=== PATIENT | female | born 1940 | race Caucasian/White ===

== ENCOUNTER 2025-07-30 18:53 | Inpatient (IN) | payer OTHER, SELFPAY ==
[2025-07-30] VITALS (8 sets, daily range): BP systolic 114–156; BP diastolic 56–84; BMI 20.9
[2025-07-30 16:53] LABS: Hematocrit 30.3 % (37.0-47.0); Hemoglobin 9.5 g/dL (12.0-16.0); Mean Corp Hgb Conc. 31.4 g/dL (33.0-37.0); Mean Corpuscular Volume 83.9 fL (81.0-99.0); Nucleated Red Blood Cells % 0 %; Platelet Count 301 10^3/uL (130-400); Red Cell Dist. Width 16.5 % (11.5-14.5)
[2025-07-30 17:03] LABS: ALT (SGPT) 14 U/L (0-35); AST (SGOT) 22 U/L (14-36); Albumin 4.1 g/dl (3.5-5.0); Alkaline Phosphatase 77 U/L (38-126); Blood Urea Nitrogen 43 mg/dl (7-17); Calcium 10.4 mg/dl (8.4-10.2); Carbon Dioxide 31 mmol/L (22-30); Chloride 94 mmol/L (98-107); Glucose 80 mg/dl (70-99); Potassium 5.6 mmol/L (3.5-5.1); Sodium 133 mmol/L (135-145); Total Protein 8.1 g/dl (6.3-8.2); eGFR 7.95
[2025-07-30 17:09] LABS: Troponin I < 0.012 ng/ml
--- NOTE | 2025-07-30 17:27 | ED.GENMED ---
History of Present Illness
General
Chief Complaint: Breathing Problem
Source: patient
Exam Limitations: none
Time Seen by Provider: 07/30/25 17:19
Nursing documentation reviewed up to this point in time: agreed with
History of Present Illness
History of Present Illness:
Note:
CHIEF COMPLAINT(S)
Cough and difficulty breathing.
HISTORY OF PRESENT ILLNESS
The patient is an 84-year-old female with a recent evaluation revealing bilateral pneumonia. The patient has a history of dialysis, with a session scheduled for tomorrow and one completed yesterday without issues. She reports coughing and difficulty
breathing but denies experiencing chills or fever. Approximately one month ago, she suffered a fall affecting the right side of her body, for which she was evaluated. The patients pneumonia was identified via X-ray, and she previously experienced
Clostridioides difficile (C. diff) infection following antibiotic treatment with oral vancomycin. The need for intravenous antibiotics despite previous complications with antibiotics due to C. diff was discussed. A hospital stay for initiation of IV
antibiotics and monitoring for potential C. diff recurrence was proposed. This condition is not believed to be related to fluid overload, as the patient is reportedly dry following dialysis.
PAST MEDICAL AND SURGICAL HISTORY
The patient experienced a fall in February and was treated at [facility].
CHRONIC MEDICAL CONDITIONS SIGNIFICANTLY AFFECTING CARE
End-stage renal disease on regular dialysis.
SOCIAL DETERMINANTS AFFECTING HEALTH
The patient has been dependent on family members for care since February following her fall.
EXTERNAL RECORDS REVIEWED
The patient was previously treated at [facility] in February for a fall. Previous treatment included oral vancomycin following C. diff infection.
REVIEW OF SYSTEMS
- Respiratory: Reports cough and difficulty breathing; denies fever and chills.
PHYSICAL EXAM
General: Alert, no acute distress.
Skin: Warm, dry.
Head: Normocephalic, atraumatic.
Neck: Supple, trachea midline.
Eye, Ears, Nose, Mouth, and Throat: Oral mucosa moist.
Cardiovascular: Normal peripheral perfusion, No edema.
Respiratory: Respirations are non-labored. Presence of pneumonia with audible impaired lung sounds in bilateral lungs.
Gastrointestinal: Abdomen nondistended.
Back: Normal range of motion, Normal alignment.
Musculoskeletal: Normal ROM, normal strength.
Neurological: Alert and oriented to person, place, time, and situation, No focal neurological deficit observed.
Psychiatric: Cooperative, appropriate mood & affect.
PROBLEM LIST
Acute Problems:
- Bilateral pneumonia
- Cough
- Difficulty breathing
Chronic Problems:
- End-stage renal disease on dialysis
- History of Clostridioides difficile infection
PLAN
The patient will be admitted to the hospital for intravenous antibiotic treatment for pneumonia. Close monitoring for the recurrence of Clostridioides difficile infection will be necessary. Coordination with the internal medicine doctor and the
patient�s primary care physician, Dr. Huddleston, is planned. Arrangements for dialysis to be conducted in the hospital are needed due to the admission. A transitional plan to oral antibiotics will be established pending improvement.
DIFFERENTIAL DIAGNOSIS
The Differential Diagnosis includes, in no particular order and is not limited to:
1. Bilateral pneumonia
2. Congestive heart failure exacerbation
3. Chronic obstructive pulmonary disease exacerbation
4. Pulmonary embolism
5. Acute respiratory distress syndrome
6. Interstitial lung disease
7. Pleural effusion
8. Tuberculosis
9. Bronchitis
10. Aspiration pneumonia
CARE-UPDATE
07/30/25 - 17:49
Discussed patient condition and treatment plan with Dr. Smith from infectious disease. Recommended treatment includes oral vancomycin, intravenous ceftriaxone, and oral doxycycline. Plan to admit to hospitalists for continued care and monitor
closely. Patient scheduled for dialysis in the morning.
EKG
My independent EKG interpretation is:
- Rhythm: Not specifically mentioned, but presence of premature atrial complexes suggests possibly sinus rhythm with ectopy.
- Heart Rate: 77 bpm.
- Premature Atrial Complexes: Present.
- Left Anterior Fascicular Block: Present.
- No previous EKG available for comparison.
Disposition:
SUMMARY OF ENCOUNTER
The patient, an 84-year-old female, was seen in the emergency department with a diagnosis of bilateral pneumonia. She also has a chronic medical condition of end-stage renal disease requiring dialysis. Due to her pneumonia, the plan is to admit her
to the hospitalists for initiation of intravenous antibiotic treatment and to prevent recurrence of a C. diff infection with oral vancomycin. Dialysis arrangements will be made during her hospital stay.
DISPOSITION
Admit.
ASSESSMENT
Bilateral pneumonia in a patient with end-stage renal disease on dialysis.
MANAGEMENT OF THE PATIENTS CARE WAS DISCUSSED WITH
Discussed management plan with infectious disease physician regarding the administration of oral vancomycin to prevent C. diff.
PLAN
The patient will be admitted for hospital-based care including intravenous antibiotics for bilateral pneumonia. Oral vancomycin will be administered as prophylaxis against C. diff infection. Necessary arrangements for routine dialysis during
hospitalization are also planned.
INDEPENDENT REVIEW OF LABS AND INTERPRETATION OF TESTS
-My independent interpretation for the chest x-ray and identification of pneumonia was based on reported imaging, confirming bilateral pneumonia presence.
MEDICATION RECONCILIATION
- Oral vancomycin will be administered as a preventive measure against Clostridioides difficile infection during the hospital stay.
MEDICAL DECISION MAKING
- Number and Complexity of Problems Addressed: Chronic conditions affecting care include bilateral pneumonia and end-stage renal disease on dialysis.
Differential Diagnosis considered:
1. Bilateral pneumonia
2. Congestive heart failure exacerbation
3. Chronic obstructive pulmonary disease exacerbation
4. Pulmonary embolism
5. Acute respiratory distress syndrome
6. Interstitial lung disease
7. Pleural effusion
8. Tuberculosis
9. Bronchitis
10. Aspiration pneumonia
- Data:
Category 1:
- External records reviewed: Previous treatments at [facility] for falls and C. diff infection.
Category 2:
- My independent interpretation of the chest x-ray shows bilateral pneumonia.
Category 3:
- Discussion of management with infectious disease specialist, Dr. Smith, concerning antibiotics regimen.
- Risk:
- Prescription drug management includes administering oral vancomycin.
- Hospital admission for intravenous antibiotics and monitoring for C. diff recurrence.
DIAGNOSIS
- Bilateral Pneumonia (ICD-10: J18.9)
- End-Stage Renal Disease on dialysis (ICD-10: N18.6)
Phy Exam
Physical Exam
Physical Exam:
.
Scores
Heart Failure Risk
Heart Failure Risk Score: Not Applicable
Course
Orders/Labs/Results
Orders:
Orders
07/30/25 15:17
Electrocardiogram (*1) Urgent
Reason for Study: Shortness of Breath
EKG- Treatment ONCE
Chest [CR Chest - 2 Views ] Urgent
Comment:
Reason For Exam: sob and cough
07/30/25 16:38
Complete Blood Count/With Diff Urgent
Comprehensive Metabolic Panel Urgent
NT-proBNP Urgent
Troponin I Urgent
07/30/25 17:20
COVID-19 Antigen Urgent
Source: Nasal Swab
Influenza A+B Rapid Molecular Urgent
ZEUS Source: Nasal Swab
Specimen Description:
07/30/25 17:44
CefTRIAXone [Rocephin] 1,000 mg IV NOW STA
Doxycycline [Vibramycin] 100 mg PO NOW STA
Vancomycin HCl [Firvanq] 125 mg PO NOW STA
07/30/25 17:45
Blood Culture Q30M
ZEUS Source: Blood/Venous
Specimen Description:
07/30/25 18:15
Blood Culture Q30M
ZEUS Source: Blood/Venous
Specimen Description:
Abnormal Lab Results
07/30/25
16:38
RBC 3.61 L 10^6/uL
(4.20-5.40)
Hgb 9.5 L g/dL
(12.0-16.0)
Hct 30.3 L %
(37.0-47.0)
MCH 26.3 L pg
(27.0-31.0)
MCHC 31.4 L g/dL
(33.0-37.0)
RDW 16.5 H %
(11.5-14.5)
Absolute Neuts (auto) 6.6 H 10^3/uL
(1.4-6.5)
Absolute Lymphs (auto) 0.8 L 10^3/uL
(1.2-3.4)
Absolute Monos (auto) 1.1 H 10^3/uL
(0.1-0.6)
Neutrophils % 75.3 H %
(42.2-75.2)
Lymphocytes % 8.7 L %
(20.5-51.1)
Monocytes % 12.8 H %
(1.7-9.3)
Sodium 133 L mmol/L
(135-145)
Potassium 5.6 H mmol/L
(3.5-5.1)
Chloride 94 L mmol/L
(98-107)
Carbon Dioxide 31 H mmol/L
(22-30)
BUN 43 H mg/dl
(7-17)
Creatinine 5.0 H* mg/dL
(0.6-1.0)
Calcium 10.4 H mg/dl
(8.4-10.2)
07/30/25 16:38
07/30/25 16:38
Vital Signs
Initial and Last Documented VS:
Initial Vital Signs
Temp Pulse Resp BP Pulse Ox
99.2 F 87 28 114/56 97
07/30/25 15:07 07/30/25 15:07 07/30/25 15:07 07/30/25 15:07 07/30/25 15:07
Last Documented Vital Signs
Temp Pulse Resp BP Pulse Ox
99.2 F 68 24 144/65 97
07/30/25 15:07 07/30/25 17:00 07/30/25 17:00 07/30/25 17:00 07/30/25 17:28
*Pulse Oximetry
SaO2: 97
Oxygen Mode of Delivery: Room air
Patient hypoxic: no
*Critical Care Note
Total Time (30-74mins, 75-104mins- exclusive of procedures): Not Applicable
ED Attending Note
-
Portions of this chart may have been created with voice recognition software.� Occasional wrong word or��sound alike� substitutions may have occurred due to the inherent limitations of voice recognition software.
Discharge Plan
Departure
Patient Disposition: Admit
Date of Disposition: 07/30/25
Time of Disposition: 17:52
Admit to: Telemetry
Presentation/result/management discussed w/ accepting MD/DO: Hospitalist
Patient with high blood pressure during this ER visit?: Yes
Condition: Fair
Discharge Problem:
Bilateral pneumonia, End-stage renal disease (ESRD)
Referrals:
Mu Ortiz MD [Family Provider, Internal Medicine]
Interventions
Interventions:
*Risk Screen - Suicide Last Done: 07/30/25 15:07
Discharge Date and Time
Print Language: TAMAZIGHT
--- NOTE | 2025-07-30 17:55 | HPS.HSE ---
Addendum entered and electronically signed by Jose Alfredo Adams MD 07/30/25 20:43:
This is an addendum to H&P written by Marie Long on 07/30/2025. �Patient seen and examined independently with PUMP TECHNICIAN.
84-year-old female past medical history of ESRD on hemodialysis, hypertension, PFO, prior C. difficile presenting with cough with clear sputum for the past 2 weeks with shortness of breath at times. �2 weeks ago had a fall and was seen at [facility] with right facial bruise with negative CT head.
No fevers or chills or chest pain.
Vital signs unremarkable.
Labs show hemoglobin 9.5. �Potassium 5.6. �Cardiac BNP of 19,000. �EKG shows sinus rhythm with premature atrial complexes. �Left anterior fascicular block. �Chest x-ray shows bilateral patchy parenchymal opacities likely pneumonia. �COVID and flu
pending.
Patient with pneumonia. �Check sputum. �Blood cultures pending. �Ceftriaxone/doxycycline.
Patient received dialysis yesterday. �Nephrology consulted for routine dialysis tomorrow. �Hyperkalemia secondary to losartan. �Hold losartan. �Give single dose of Lokelma for hyperkalemia. �ID recommended p.o. vancomycin given history of C.
difficile.
Addendum entered and electronically signed by NUBIA Ellington 07/30/25 19:02:
hyperkalemia: lokelma once, hold losartan
Original Note:
Family Physician
-
Family Physician: Mu Robledo
Chief Complaint
-
cough
History of Present Illness
84-year-old female with past medical history of hypertension, PFO, end-stage renal disease, C diff presented to us with cough with some clear sputum for past two weeks. patient stated sob at times with exertion. denied fever, chills,chest pain.
denied HOWELL< dizzy or syncope. denied abdominal pain,n,v,d. patient is anuric.
she had an x ray last week but no results yet. patient had a fall two week ago. she was evaluated at [facility]. CT head was obtained which was negative. her facial bruising getting better as per son.
Chest x-ray with pneumonia. Patient received a dose of oral Vanco, ceftriaxone and Doxy in ER. Admitting for further management
Medical History
Past Medical History
Past Medical History: Reports Other
Additional Past Medical History:
Glaucoma, bilateral cirrhosis, end-stage renal disease, vertigo, GERD, hypothyroidism, SVT, glomerulonephritis, hypertension, polyarteritis nodosa, Arana's esophagus, cardiomyopathy, PFO
Past Surgical History: Reports Other
Additional Past Surgical History:
Appendectomy, cataract surgery, tonsillectomy, AV fistula placement
Social History
Tobacco: Former Smoker
Alcohol: None
Drug: None
Living: With Family
Family History
Family History: Not pertinent
Allergies / Home Medications
Allergies reflects when Allergies were last updated in [employer].
Home Medications with original date entered in [employer]
Allergy/Medication List:
Allergies
Allergy/AdvReac Type Severity Reaction Status Date / Time
No Known Allergies Allergy Unverified 07/30/25 15:07
Home Medications
amlodipine 5 mg tablet 5 mg PO DAILY 07/30/25
calcium acetate(phosphat bind) 667 mg capsule 667 mg PO TID 07/30/25
carvedilol 25 mg tablet 25 mg PO BID 07/30/25
folic acid 1 mg tablet 1 mg PO DAILY 07/30/25
latanoprost 0.005 % eye drops 1 drp BOTH EYES HS 07/30/25
levothyroxine 100 mcg tablet (Synthroid) 25 mcg PO DAILY 07/30/25
levothyroxine 200 mcg tablet (Synthroid) 200 mcg PO DAILY 07/30/25
lidocaine 5 % topical patch 1 patch topical DAILY 07/30/25
losartan 100 mg tablet 100 mg PO DAILY 07/30/25
melatonin 5 mg tablet 5 mg PO HS PRN sleep 07/30/25
pantoprazole 40 mg tablet,delayed release 40 mg PO DAILY 07/30/25
ursodiol 300 mg capsule 250 mg PO TID 07/30/25
vitamin B complex and vitamin C no.20-folic acid 1 mg capsule (Triphrocaps) 1 cap PO DAILY 07/30/25
Review of Systems
-
Constitutional: Reports No Symptoms
EENT: Reports No Symptoms
Respiratory: Reports Cough and Trouble Breathing
Cardiac: Reports No Symptoms
Abdomen/GI: Reports No Symptoms
: Reports No Symptoms
Musculoskeletal: Reports No Symptoms
Skin: Reports No Symptoms
Neurological: Reports No Symptoms
Endocrine: Reports No Symptoms
Hematologic/Lymphatic: Reports No Symptoms
Psych: Reports No Symptoms
Physical Exam
Vital Signs
Vital Signs
Temp Pulse Resp BP Pulse Ox
99.2 F 68 24 144/65 97
07/30/25 15:07 07/30/25 17:00 07/30/25 17:00 07/30/25 17:00 07/30/25 17:28
Physical Exam
General: Well Developed, Well Nourished and No Apparent Distress
HEENT: NormoCephalic, Moist mucous membranes and Atraumatic
Respiratory: Rales
Cardiac: S1/S2 and Regular Rhythm; No Murmur or Rub
GI: Soft, Non Tender, Non Distended and Normal Bowel Sounds; No Organomegaly
Rectal: Deferred by Provider
Musculoskeletal: No Clubbing, No Cyanosis and No Edema
Skin: No Rash
Neuro: AO x 3 and Nonfocal/grossly intact
Psych: Calm
Laboratory Results
-
07/30/25 16:38
07/30/25 16:38
Laboratory Results
Total Bilirubin 0.6 mg/dl (0.2-1.3) 07/30/25 16:38
AST 22 U/L (14-36) 07/30/25 16:38
ALT 14 U/L (0-35) 07/30/25 16:38
Alkaline Phosphatase 77 U/L (38-126) 07/30/25 16:38
Troponin I < 0.012 ng/ml 07/30/25 16:38
Data Reviewed
-
Diagnostic Radiology: Report Reviewed by me
Lab Data: Labs Reviewed by me
Impression/Plan
-
# Bilateral pneumonia
- Ceftriaxone and Doxy continued
- Tylenol and fever
- Will obtain urine Legionella, strep pneumonia
- Chest x-ray with impression of Bilateral patchy parenchymal opacities, new since prior examination, and very likely representing pneumonia.No significant associated pleural effusion.
- Blood culture sent from ER
- COVID and flu pending
# History of C diff
-Prophylactically initiated on oral vancomycin as per ID
# Anemia likely chronic
- Hemoglobin stable at 9.5, no active bleeding
- Continue to monitor
# End-stage renal disease
- On dialysis Tuesday
- Nephrology consulted
- Calcium acetate, ursodiol, triprocaps continued
# Essential hypertension
- Norvasc, Coreg, losartan continue with hold parameters
# Hypothyroidism
- Levothyroxine continue
#DVT prophylaxis
-heparin sq
#CODE status
-full code
[2025-07-30] MEDS: ROCEPHIN 1000 MG IV (18:31)
[2025-07-30] MEDS: VIBRAMYCIN 100 MG PO (18:31)
[2025-07-30 19:12] LABS: COVID-19 Antigen Negative (Negative)
[2025-07-30] MEDS: LOKELMA 5 GRAM PO (21:17)
[2025-07-30] MEDS: ACTIGALL 300 MG PO (23:17)
[2025-07-30] MEDS: COREG 25 MG PO (23:18)
[2025-07-30] MEDS: HEPARIN 5000 UNITS SC (23:18)
[2025-07-30] MEDS: MUCINEX 600 MG PO (23:18)
[2025-07-30] MEDS: XALATAN OPHTHALMIC SOLUTION 1 DROP BOTH EYES (23:18)
[2025-07-30] MEDS: MELATONIN 5 MG PO (23:20)
[2025-07-31 03:03] VITALS: BP 135/71
[2025-07-31] MEDS: FIRVANQ 125 MG PO ×4 (05:02→23:49)
[2025-07-31 06:00] VITALS: BMI 20.9
[2025-07-31 08:06] LABS: Hematocrit 29.3 % (37.0-47.0); Hemoglobin 9.3 g/dL (12.0-16.0); Mean Corp Hgb Conc. 31.7 g/dL (33.0-37.0); Mean Corpuscular Volume 83.5 fL (81.0-99.0); Platelet Count 274 10^3/uL (130-400); Red Cell Dist. Width 16.3 % (11.5-14.5)
[2025-07-31 08:25] VITALS: BP 144/70
[2025-07-31] MEDS: NEPHROCAP 1 CAPSULE PO (08:37)
[2025-07-31] MEDS: TYLENOL 500 MG PO ×3 (08:38→22:04)
[2025-07-31] MEDS: PROTONIX 40 MG PO (08:38)
[2025-07-31] MEDS: VIBRAMYCIN 100 MG PO ×2 (08:38→20:34)
[2025-07-31] MEDS: PHOSLO 667 MG PO ×3 (08:38→17:13)
[2025-07-31] MEDS: COREG 25 MG PO ×2 (08:38→20:34)
[2025-07-31] MEDS: FOLVITE 1 MG PO (08:39)
[2025-07-31] MEDS: MUCINEX 600 MG PO ×2 (08:39→20:34)
[2025-07-31] MEDS: NORVASC 5 MG PO ×2 (08:39→20:34)
[2025-07-31] MEDS: HEPARIN 5000 UNITS SC ×2 (08:39→22:05)
[2025-07-31] MEDS: LIDOCAINE 4% PATCH 1 PATCH TOPICAL (08:40)
[2025-07-31] MEDS: ACTIGALL 300 MG PO ×3 (08:40→22:03)
[2025-07-31 08:48] LABS: Blood Urea Nitrogen 51 mg/dl (7-17); Calcium 9.4 mg/dl (8.4-10.2); Carbon Dioxide 26 mmol/L (22-30); Chloride 94 mmol/L (98-107); Estimated Creatinine Clearance 5 ml/min; Glucose 78 mg/dl (70-99); Potassium 6.1 mmol/L (3.5-5.1); Sodium 131 mmol/L (135-145); eGFR 6.94
[2025-07-31] MEDS: LOKELMA 10 GRAM PO (09:52)
[2025-07-31] MEDS: DEXTROSE 50% SYRINGE 25 GRAMS IV (09:55)
[2025-07-31] MEDS: NOVOLIN R 0.05 UNITS IV (09:56)
[2025-07-31 10:00] LABS: Glucose - Point of Care 75 mg/dl (70-99)
--- NOTE | 2025-07-31 11:06 | W.PN.HOSP.TC ---
Today's Communication/Plan
-
Continue with antibiotic
Sputum sample pending
Temporary measure for potassium
Hemodialysis today
Assessment / Plan
Assessment / Plan
General: Well Developed, Well Nourished and No Apparent Distress, facial bruising noted
HEENT: NormoCephalic, Moist mucous membranes and Atraumatic. HD catheter noted
Respiratory: Rhonchi, not tachypneic, able to speak in complete sentences
Cardiac: S1/S2 and Regular Rhythm; No Murmur or Rub
GI: Soft, Non Tender, Non Distended and Normal Bowel Sounds; No Organomegaly
Rectal: Deferred by Provider
Musculoskeletal: No Clubbing, No Cyanosis and No Edema
Skin: No Rash
Neuro: AO x 3 and Nonfocal/grossly intact
Psych: Calm
# Bilateral pneumonia
- Ceftriaxone and Doxy continued
- Monitor temperature curve.
- Chest x-ray with impression of Bilateral patchy parenchymal opacities, new since prior examination, and very likely representing pneumonia.No significant associated pleural effusion.
- Blood culture sent from ER and in lab pending.
- COVID and flu found to be negative. Sputum sample pending.
# History of C diff
-Prophylactically initiated on oral vancomycin
# Anemia likely chronic
- Hemoglobin stable at 9.5, no active bleeding
- Continue to monitor
# End-stage renal disease
#Hyperkalemia secondary to ESRD and also on losartan
- On dialysis Tuesday
- Nephrology consulted
- Calcium acetate, ursodiol, triprocaps continued
- Dose of Lokelma and insulin/glucose. Plan for hemodialysis later today.
# Essential hypertension
- Norvasc, Coreg, continue with hold parameters
- With severe hyperkalemia may need to consider stopping losartan?
# Hypothyroidism
- Levothyroxine continue
#DVT prophylaxis
-heparin sq
#CODE status
-full code
PT recs -SNF
Anticipated Discharge: > 48 hours
Subjective/Interval History
-
Date of Service: July 31, 2025
Shortness of breath
States no severe productive cough
On room air
States about eat breakfast
Objective Data
-
Labs:
Laboratory Results
07/31/25
07:16
WBC 8.5
Hgb 9.3 L
Hct 29.3 L
Plt Count 274
Sodium 131 L
Potassium 6.1 H*
Chloride 94 L
Carbon Dioxide 26
BUN 51 H
Creatinine 5.6 H*
Glucose 78
Calcium 9.4
Vital Signs:
Vital Signs
Temp Pulse Resp BP Pulse Ox
98.0 F 63 16 144/70 97
07/31/25 08:25 07/31/25 08:25 07/31/25 08:25 07/31/25 08:25 07/31/25 08:25
I&O
07/30/25 07/31/25 08/01/25
06:59 06:59 06:59
Intake Total 240 / 240
Balance 240 / 240
Data Reviewed
-
Total Time Spent with Patient (in minutes): 55
[2025-07-31 11:54] LABS: Glucose - Point of Care 110 mg/dl (70-99)
[2025-07-31 11:56] VITALS: BP 137/65
--- NOTE | 2025-07-31 11:59 | CM ---
CM reviewed chart, patient seen bedside with son, Harrison (Physician), initial assessment completed.
The patient is an 84-year-old female with a recent evaluation revealing bilateral pneumonia.
Patient currently resides with her son, Kojo, in [place]. Patient was recently admitted to [facility], d/c to [facility], then d/c to son's home (one level, re-did garage for patient to stay in, ramp to enter). Prior to staying with
son, patient resides in a ranch style home, two steps to enter in [place].
Patient is currently with [facility], will send referral in [facility].
Patient DME includes rollator, transport chair.
Patient current with [facility] location (M,W,F 11:00 a.m. chair time).
PCP Mu Ortiz, Pharmacy [facility].
Patient denies insecurities at home.
Patient/son confirm plan will be to return to son's home in [place] once stable.
Plan; home with son with [facility] pending patient progress
[2025-07-31] MEDS: HEPARIN 500 UNITS IV ×2 (13:05→14:05)
--- NOTE | 2025-07-31 14:24 | W.CON.NEPH ---
Consultation
-
Date/Time Consultation Requested: 07/30/252127
Date/Time Consultation Performed: 07/31/25 1430
Requesting Provider: Shae Tate
Performing Provider: brennan Liao
Reason for Consultation: ESRD
Medical History
-
Chief Complaint: cough
History of Present Illness:
84-year-old female with past medical history of hypertension on amlodipine, coreg and losartan, PFO, end-stage renal disease on HD 8.5 yrs MWF [facility] through tunneled catheter, C diff presented to ER on 07/30 with cough with some clear
sputum for past two weeks. patient stated sob at times with exertion. denied fever, chills,chest pain. denied abdominal pain,n,v,d. NO sig UOP.Reportedly had coughing during eating. patient had a fall two week ago. she was evaluated at [facility]. her
facial bruising getting better as per son.
Chest x-ray shows bilat pneumonia and admited for further manaement. Nephrology was asked to see for dialysis needs.
She reports no issues with HD other than low BPs which limits her UF more so lately. Has tunneled catheter fro last 2yres and exchanged about 1 month ago.
Past Medical History
Glaucoma, bilateral cirrhosis, end-stage renal disease, vertigo, GERD, hypothyroidism, SVT, glomerulonephritis, hypertension, polyarteritis nodosa, Arana's esophagus, cardiomyopathy, PFO
Failed AVFs
Past Surgical History: Other (Appendectomy, cataract surgery, tonsillectomy, AV fistula placement)
Social History
Tobacco: Former Smoker
Alcohol: None
Drug: None
Living: With Family
Family History
Family History: Not Pertinent
Allergies / Home Medications
Allergy/AdvReac Type Severity Reaction Status Date / Time
amoxicillin (From Augmentin) Allergy PER SON Verified 07/30/25 21:59
clavulanic acid (From Allergy PER SON Verified 07/30/25 21:59
Augmentin)
erythromycin base Allergy PER SON Verified 07/30/25 21:59
�Medication �Instructions �Recorded �Confirmed �Type
Tylenol Extra Strength 500 mg PO TID back pain 07/30/25 07/30/25 History
amlodipine 5 mg tablet 5 mg PO BID Blood Pressure 07/30/25 07/30/25 History
calcium acetate(phosphat bind) 667 667 mg PO TID Supplement 07/30/25 07/30/25 History
mg capsule
carvedilol 25 mg tablet 25 mg PO BID Blood Pressure 07/30/25 07/30/25 History
folic acid 1 mg tablet 1 mg PO DAILY Supplement 07/30/25 07/30/25 History
latanoprost 0.005 % eye drops 1 drp BOTH EYES HS Eye Condition 07/30/25 07/30/25 History
levothyroxine 100 mcg tablet 50 mcg PO HS Thyroid 07/30/25 07/30/25 History
(Synthroid)
levothyroxine 200 mcg tablet 200 mcg PO DAILY Thyroid 07/30/25 07/30/25 History
(Synthroid)
losartan 100 mg tablet 100 mg PO DAILY Blood Pressure 07/30/25 07/30/25 History
melatonin 5 mg tablet 10 mg PO HS Sleep 07/30/25 07/30/25 History
pantoprazole 40 mg tablet,delayed 40 mg PO DAILY Gastrointestinal 07/30/25 07/30/25 History
release Issue
ursodiol 300 mg capsule 300 mg PO TID Urinary Issue 07/30/25 07/30/25 History
vitamin B complex and vitamin C 1 cap PO DAILY Supplement 07/30/25 07/30/25 History
no.20-folic acid 1 mg capsule
(Triphrocaps)
Review of Systems
-
All other systems: Negative unless noted
Physical Exam
Vital Signs
Vital Signs
Temp Pulse Resp BP Pulse Ox
97.5 F 70 18 137/65 99
07/31/25 11:56 07/31/25 11:56 07/31/25 11:56 07/31/25 11:56 07/31/25 11:56
Lab Results
WBC 8.5 10^3/uL (4.8-10.8) 07/31/25 07:16
RBC 3.51 10^6/uL (4.20-5.40) L 07/31/25 07:16
Hgb 9.3 g/dL (12.0-16.0) L 07/31/25 07:16
Hct 29.3 % (37.0-47.0) L 07/31/25 07:16
Plt Count 274 10^3/uL (130-400) 07/31/25 07:16
Sodium 131 mmol/L (135-145) L 07/31/25 07:16
Potassium 6.1 mmol/L (3.5-5.1) H* 07/31/25 07:16
Chloride 94 mmol/L (98-107) L 07/31/25 07:16
Carbon Dioxide 26 mmol/L (22-30) 07/31/25 07:16
BUN 51 mg/dl (7-17) H 07/31/25 07:16
Creatinine 5.6 mg/dL (0.6-1.0) H* 07/31/25 07:16
eGFR 6.94 07/31/25 07:16
Glucose 78 mg/dl (70-99) 07/31/25 07:16
Calcium 9.4 mg/dl (8.4-10.2) 07/31/25 07:16
Pmx-F-Yqhtvtfepao Pept 95875 pg/ml 07/30/25 16:38
Albumin 4.1 g/dl (3.5-5.0) 07/30/25 16:38
Physical Exam
General: Awake, Alert, Oriented, AOx3, No Distress and Nontoxic
HEENT: EOMI, Anicteric, Conjunctivae Clear and Other (facial bruising noted-healing)
Respiratory: Clear (anteriorly), Normal Excursion and Nonlabored Respirations
Cardiac: S1/S2 and Regular Rate/Rhythm
Breast: Deferred by me
Abdomen: Soft, Nontender and Nondistended
Musculoskeletal: No Cyanosis and No Edema
Skin: No Rash
Neuro: Nonfocal/Grossly Intact
Psych: Mood/afflect pleasant, Insight/judgement good and Appropriate
Vascular Access: CVC
Data Reviewed
-
Labs: Labs Reviewed by me, Discussed with Patient and Discussed with Family
Assessment/Plan
-
IMP:
Bilateral pneumonia
History of C diff
Anemia likely chronic
End-stage renal disease MWF, CVC
Hyperkalemia
Essential hypertension
Hypothyroidism
Plan:
A/w cough, noted bilat PNA
will plan HD as per schedule today
hyperkalemia-low k bath
strict renal diet and FR
resume home meds including losartan
with aneuric state ARB likely not contributing much of hyperkalemia
likely need to hold Amlodipine, coreg pre HD to allow UF
d/wpt and son
[2025-07-31] MEDS: RETACRIT 6000 UNITS IV (14:55)
[2025-07-31 15:00] VITALS: BP 115/66
--- NOTE | 2025-07-31 15:36 | W.PN.NEPH.HD ---
Assessment
-
pt seen during HD
vitals stable
UF as tolerates
may need to challenge wt for resp symp
CVC functions fine
Progress Note - Hemodialysis
-
Date of Service: July 31, 2025
Duration: 30 minutes and 3 hours
Potassium Bath: 2
Calcium Bath: 2.5
Opti-Dialyzer: 160
Ultrafiltration: Other (1.5-2kg)
Blood Flow: 350
Dialysate Flow: 600
Heparin: yesx2
EPO: 6000
[2025-07-31] MEDS: HEPARIN 3200 UNITS INTRACATH (16:31)
[2025-07-31] MEDS: STERILE WATER FOR INJECTION 10 ML IV (17:15)
[2025-07-31] MEDS: ROCEPHIN 1000 MG IV (17:15)
[2025-07-31 19:41] VITALS: BP 143/83
[2025-07-31] MEDS: REMOVE LIDOCAINE PATCH 1 PATCH REMOVE (21:00)
[2025-07-31] MEDS: XALATAN OPHTHALMIC SOLUTION 1 DROP BOTH EYES (22:05)
[2025-07-31 22:23] LABS: Blood Urea Nitrogen 19 mg/dl (7-17); Calcium 8.9 mg/dl (8.4-10.2); Carbon Dioxide 28 mmol/L (22-30); Chloride 97 mmol/L (98-107); Estimated Creatinine Clearance 10 ml/min; Glucose 153 mg/dl (70-99); Potassium 4.1 mmol/L (3.5-5.1); Sodium 133 mmol/L (135-145); eGFR 15.95
[2025-07-31] MEDS: SYNTHROID 200 MCG PO (23:08)
[2025-07-31] MEDS: SYNTHROID 50 MCG PO (23:08)
[2025-07-31 23:13] VITALS: BP 139/85
[2025-08-01 03:32] VITALS: BP 134/69
[2025-08-01] MEDS: FIRVANQ 125 MG PO ×4 (05:20→23:00)
[2025-08-01 06:00] VITALS: BMI 21.0
[2025-08-01 07:00] VITALS: BP 147/63
[2025-08-01 07:49] LABS: Hematocrit 30.2 % (37.0-47.0); Hemoglobin 9.5 g/dL (12.0-16.0); Mean Corp Hgb Conc. 31.5 g/dL (33.0-37.0); Mean Corpuscular Volume 85.3 fL (81.0-99.0); Platelet Count 274 10^3/uL (130-400); Red Cell Dist. Width 16.2 % (11.5-14.5)
[2025-08-01] MEDS: COREG 25 MG PO ×2 (08:20→20:50)
[2025-08-01] MEDS: PROTONIX 40 MG PO (08:20)
[2025-08-01] MEDS: MUCINEX 600 MG PO ×2 (08:20→20:50)
[2025-08-01] MEDS: LIDOCAINE 4% PATCH 1 PATCH TOPICAL (08:20)
[2025-08-01] MEDS: PHOSLO 667 MG PO ×3 (08:20→16:58)
[2025-08-01] MEDS: DESENEX/MITRAZOL/ZEASORB 1 APPLIC TOPICAL ×2 (08:20→22:54)
[2025-08-01] MEDS: NORVASC 5 MG PO ×2 (08:20→20:50)
[2025-08-01] MEDS: VIBRAMYCIN 100 MG PO ×2 (08:20→20:50)
[2025-08-01] MEDS: HEPARIN 5000 UNITS SC ×2 (08:20→22:54)
[2025-08-01] MEDS: NEPHROCAP 1 CAPSULE PO (08:21)
[2025-08-01] MEDS: ACTIGALL 300 MG PO ×3 (08:21→20:51)
[2025-08-01] MEDS: TYLENOL 500 MG PO ×3 (08:21→20:51)
[2025-08-01] MEDS: FOLVITE 1 MG PO (08:21)
[2025-08-01 08:36] LABS: Blood Urea Nitrogen 30 mg/dl (7-17); Calcium 8.8 mg/dl (8.4-10.2); Carbon Dioxide 29 mmol/L (22-30); Chloride 98 mmol/L (98-107); Estimated Creatinine Clearance 7 ml/min; Glucose 87 mg/dl (70-99); Potassium 5.0 mmol/L (3.5-5.1); Sodium 135 mmol/L (135-145); eGFR 9.80
--- NOTE | 2025-08-01 10:56 | W.PN.HOSP.TC ---
Addendum entered and electronically signed by Antwan Velasco MD 08/01/25 11:58:
Bilateral heels stage I pressure injury likely present on admission. Wound care. Offloading.
Original Note:
Today's Communication/Plan
-
IV abx
HD EDW
PT recs SNF
po vanc
Assessment / Plan
Assessment / Plan
General: Well Developed, Well Nourished and No Apparent Distress, facial bruising noted
HEENT: NormoCephalic, Moist mucous membranes and Atraumatic. HD catheter noted
Respiratory: Rhonchi, not tachypneic, able to speak in complete sentences
Cardiac: S1/S2 and Regular Rhythm; No Murmur or Rub
GI: Soft, Non Tender, Non Distended and Normal Bowel Sounds;
Musculoskeletal:trace edema
Skin: No Rash
Neuro: AO x 3 and Nonfocal/grossly intact
Psych: Calm
# Bilateral pneumonia
- Ceftriaxone and Doxy continued
- Monitor temperature curve.
- Chest x-ray with impression of Bilateral patchy parenchymal opacities, new since prior examination, and very likely representing pneumonia.No significant associated pleural effusion.
- Blood culture sent from ER and in lab pending.
- COVID and flu found to be negative. Sputum sample pending.
-CXR finding ?related to volume overload.
# History of C diff
-Prophylactically initiated on oral vancomycin
# Anemia likely chronic
- Hemoglobin stable at 9.5, no active bleeding
- Continue to monitor
# End-stage renal disease
#Hyperkalemia secondary to ESRD and also on losartan
- On dialysis Tuesday
- Nephrology consulted and correspondence noted-may need EDW challenge.
- Calcium acetate, ursodiol, triprocaps continued
- Dose of Lokelma and insulin/glucose. Plan for hemodialysis likely tomm.
# Essential hypertension
- Norvasc, Coreg, continue with hold parameters
- Per nephro-okay to continue with losartan.
# Hypothyroidism
- Levothyroxine continue
#DVT prophylaxis
-heparin sq
#CODE status
-full code
PT recs -SNF
Anticipated Discharge: Within 24 hours
Subjective/Interval History
-
Date of Service: August 01, 2025
Feeling weak
tolerating diet
Objective Data
-
Labs:
Laboratory Results
08/01/25
06:59
WBC 7.1
Hgb 9.5 L
Hct 30.2 L
Plt Count 274
Sodium 135
Potassium 5.0
Chloride 98
Carbon Dioxide 29
BUN 30 H
Creatinine 4.2 H*
Glucose 87
Calcium 8.8
Vital Signs:
Vital Signs
Temp Pulse Resp BP Pulse Ox
97.7 F 71 18 147/63 96
08/01/25 07:00 08/01/25 07:00 08/01/25 07:00 08/01/25 07:00 08/01/25 08:20
I&O
07/31/25 08/01/25 08/02/25
06:59 06:59 06:59
Intake Total 240 / 240
Balance 240 / 240
--- NOTE | 2025-08-01 11:09 | PN.CDI ---
CDI
- -
CDI:
Physician Documentation Request
Admit Date: 07/30/25 18:53
Dear Doctor Krista,
Please review the following and provide your response in the progress notes.
Clinical Indicators:
Pt admitted with Bilateral pneumonia.
07/30 die mechanic in wound panel noted bilateral heels stage 1 pressure injury POA.
Physician documentation of the type and location of wounds is required for compliant documentation. Based on the above clinical findings and your assessment, please provide the following in your progress note:
1. Location of the ulcer/wound, including laterality.
2. Type (etiology) of ulcer/wound:
Bilateral heel pressure injury POA
Bilateral heel non-pressure injury POA
Other
Use of terms such as suspected, likely, concern for, or probable (associated with a specific diagnosis that is being evaluated, monitored, or treated as if it exists) are acceptable and can be coded in the inpatient setting, when documented at the
time of discharge.
Thank you,
Abi Rodriguez RN, BSN
CDI Specialist
[place] [employer]
Please use your independent medical judgment in providing your response.
*Source: National Pressure Ulcer Advisory Panel (NPUAP)
[2025-08-01 11:18] VITALS: BP 128/69
--- NOTE | 2025-08-01 11:49 | CM ---
CM reviewed chart, patient seen bedside with son.
Discussed therapy recommendations of SNF- patient and son would like to d/c home with Niki ERICKSON.
Patient current w/ outpatient HD, [facility].
Patient remains on IV antibiotics.
CM will continue to follow for all d/c planning needs.
Plan; home with son, Niki ERICKSON, outpatient HD
[2025-08-01 15:16] VITALS: BP 127/65
[2025-08-01] MEDS: STERILE WATER FOR INJECTION 10 ML IV (16:58)
[2025-08-01] MEDS: ROCEPHIN 1000 MG IV (16:58)
--- NOTE | 2025-08-01 17:43 | W.PN.NEPH.PH ---
Today's Communication / Plan
-
HD tomorrow
Assessment/Plan
-
IMP:
Bilateral pneumonia
History of C diff
Anemia likely chronic
End-stage renal disease MWF, CVC
Hyperkalemia
Essential hypertension
Hypothyroidism
Plan:
A/w cough, noted bilat PNA
HD tomorrow
strict renal diet and FR
BP stable, cont home meds including losartan
hold Amlodipine, coreg pre HD to allow UF
abx per primary
-
-
Date of Service: August 01, 2025
CC / HPI / ROS
-
Chief Complaint:
ESRD
History of Present Illness:
BP stable, not on O2
no fever
hb 9.5 stable
Review of Systems:
no cp or sob
cough improving
Labs
-
Labs:
WBC 7.1 10^3/uL (4.8-10.8) 08/01/25 06:59
RBC 3.54 10^6/uL (4.20-5.40) L 08/01/25 06:59
Hgb 9.5 g/dL (12.0-16.0) L 08/01/25 06:59
Hct 30.2 % (37.0-47.0) L 08/01/25 06:59
Plt Count 274 10^3/uL (130-400) 08/01/25 06:59
Sodium 135 mmol/L (135-145) 08/01/25 06:59
Potassium 5.0 mmol/L (3.5-5.1) 08/01/25 06:59
Chloride 98 mmol/L (98-107) 08/01/25 06:59
Carbon Dioxide 29 mmol/L (22-30) 08/01/25 06:59
BUN 30 mg/dl (7-17) H 08/01/25 06:59
Creatinine 4.2 mg/dL (0.6-1.0) H* 08/01/25 06:59
eGFR 9.80 08/01/25 06:59
Glucose 87 mg/dl (70-99) 08/01/25 06:59
Calcium 8.8 mg/dl (8.4-10.2) 08/01/25 06:59
Wxm-Z-Adwhipriray Pept 25948 pg/ml 07/30/25 16:38
Albumin 4.1 g/dl (3.5-5.0) 07/30/25 16:38
Physical Exam
-
Vital Signs:
Vital Signs
Temp Pulse Resp BP Pulse Ox
97.7 F 70 18 127/65 98
08/01/25 15:16 08/01/25 15:16 08/01/25 15:16 08/01/25 15:16 08/01/25 15:16
Cardiovascular:: Regular rate and rhythm
Respiratory:: Bilateral: Coarse
Lung Excursion:: Normal
Abdomen:: Nontender and Soft
Extremity Edema:: None: Bilateral:
Desai Catheter: No
[2025-08-01 20:49] VITALS: BP 135/81
[2025-08-01] MEDS: SYNTHROID 200 MCG PO (22:54)
[2025-08-01] MEDS: SYNTHROID 50 MCG PO (22:54)
[2025-08-01] MEDS: XALATAN OPHTHALMIC SOLUTION 1 DROP BOTH EYES (22:54)
[2025-08-01] MEDS: REMOVE LIDOCAINE PATCH 1 PATCH REMOVE (22:55)
[2025-08-01 23:00] VITALS: BP 140/86
[2025-08-02 03:42] VITALS: BMI 22.6
[2025-08-02] MEDS: FIRVANQ 125 MG PO ×2 (05:37→11:44)
[2025-08-02 07:00] VITALS: BP 178/89
--- NOTE | 2025-08-02 08:55 | SUR.PHASEII ---
Speech Language Pathology
Pt seen for clinical bedside swallow evaluation. Pt denied any current or previous dysphagia. Also denied previous PNA. P.O. trials of regular solids and thin liquids provided. Adequate mastication, bolus formation, and A-P transit noted with no
oral residue. No overt signs of aspiration. WBC WNL at this time with no hx of PNA/dysphagia. Instrumental swallowing assessment does not appear necessary at this time.
Recommend:
(1) Regular solids/thin liquids
(2) General aspiration precautions
(3) Meds as tolerated--pt reported 1 at a time whole with liquid
(4) CHECKER AND PACKER to sign off. Please reconsult as indicated
[2025-08-02 09:24] LABS: Hematocrit 33.3 % (37.0-47.0); Hemoglobin 10.1 g/dL (12.0-16.0); Mean Corp Hgb Conc. 30.3 g/dL (33.0-37.0); Mean Corpuscular Volume 86.5 fL (81.0-99.0); Platelet Count 322 10^3/uL (130-400); Red Cell Dist. Width 16.5 % (11.5-14.5)
[2025-08-02] MEDS: LIDOCAINE 4% PATCH 1 PATCH TOPICAL (09:40)
[2025-08-02] MEDS: DESENEX/MITRAZOL/ZEASORB 1 APPLIC TOPICAL (09:40)
[2025-08-02] MEDS: NEPHROCAP 1 CAPSULE PO (09:41)
[2025-08-02] MEDS: HEPARIN 5000 UNITS SC (09:41)
[2025-08-02] MEDS: TYLENOL 500 MG PO ×2 (09:41→16:42)
[2025-08-02] MEDS: VIBRAMYCIN 100 MG PO (09:42)
[2025-08-02] MEDS: MUCINEX 600 MG PO (09:42)
[2025-08-02] MEDS: PROTONIX 40 MG PO (09:42)
[2025-08-02] MEDS: PHOSLO 667 MG PO ×3 (09:42→16:41)
[2025-08-02] MEDS: ACTIGALL 300 MG PO ×2 (09:42→16:42)
[2025-08-02] MEDS: FOLVITE 1 MG PO (09:42)
[2025-08-02 10:08] LABS: Blood Urea Nitrogen 47 mg/dl (7-17); Calcium 8.8 mg/dl (8.4-10.2); Carbon Dioxide 28 mmol/L (22-30); Chloride 95 mmol/L (98-107); Estimated Creatinine Clearance 5 ml/min; Glucose 93 mg/dl (70-99); Potassium 4.8 mmol/L (3.5-5.1); Sodium 132 mmol/L (135-145); eGFR 6.39
[2025-08-02 10:49] VITALS: BP 150/71; PULSE 66; O2SAT 97
--- NOTE | 2025-08-02 11:55 | CM ---
CM reviewed chart, patient seen in room with son, plan for d.c today after HD.
Family to transport home.
IMM verbally reviewed, provided with copy, placed in chart.
Updates to [facility]iki ERICK[facility] on d/c.
Plan; home with son, Niki ERICKSON, outpatient HD
Niki ERICKSON
Carlos
--- NOTE | 2025-08-02 12:00 | W.PN.HOSP.TC ---
Today's Communication/Plan
-
Transition to oral antibiotics
Oral vancomycin for 9 more days (5 days past last dose of CAP regimen)
Discharge after hemodialysis today
Assessment / Plan
Assessment / Plan
# Bilateral pneumonia
- Ceftriaxone and Doxy continued
- Monitor temperature curve.
- Chest x-ray with impression of Bilateral patchy parenchymal opacities, new since prior examination, and very likely representing pneumonia.No significant associated pleural effusion.
- Blood culture sent from ER and in lab pending.
- Clinically improved with ceftriaxone and doxycycline, on RA this morning
- Transition to cefdinir and doxycycline to complete 7 days of antibiotics
# History of C diff
- Prophylactically initiated on oral vancomycin
- Discussed with ID, will continue prophylaxis through 5 days following completion of antibiotics above
# Anemia likely chronic
- Hemoglobin stable at 9.5, no active bleeding
- Continue to monitor
# End-stage renal disease
#Hyperkalemia secondary to ESRD and also on losartan
- On dialysis Tuesday
- Nephrology consulted and correspondence noted-may need EDW challenge.
- Calcium acetate, ursodiol, triprocaps continued
- Dose of Lokelma and insulin/glucose. Plan for hemodialysis likely tomm.
# Essential hypertension
- Norvasc, Coreg, continue with hold parameters
- Per nephro-okay to continue with losartan.
# Hypothyroidism
- Levothyroxine continue
DVT prophylaxis: heparin sq
CODE status : full code
Anticipated Discharge: Today
Subjective/Interval History
-
Date of Service: August 02, 2025
Seen and examined at the bedside. No acute events reported overnight. AFVSS this morning on room air
Labs stable for dialysis patient. Plan for dialysis this afternoon
Patient states she feels well and is ready for discharge home. Son at the bedside and provided with updates
Objective Data
-
Labs:
Laboratory Results
08/02/25
08:47
WBC 7.6
Hgb 10.1 L
Hct 33.3 L
Plt Count 322
Sodium 132 L
Potassium 4.8
Chloride 95 L
Carbon Dioxide 28
BUN 47 H
Creatinine 6.0 H*
Glucose 93
Calcium 8.8
Vital Signs:
Vital Signs
Temp Pulse Resp BP Pulse Ox
97.8 F 86 18 178/89 98
08/02/25 07:00 08/02/25 07:00 08/02/25 07:00 08/02/25 07:00 08/02/25 07:00
I&O
08/01/25 08/02/25 08/03/25
06:59 06:59 06:59
Intake Total 780 / 780
Balance 780 / 780
Review of Systems
-
History Source: Patient and Family
All other systems: Reviewed and negative
Physical Exam
-
General: Well Developed, No Apparent Distress and Other (Frail-appearing)
HEENT: Normocephalic, Atraumatic, Moist Mucous Membranes and Anicteric
Respiratory: Clear to Auscultation and Non Labored Respirations; Negative Accessory Resp Muscle Use
Cardiac: Regular Rhythm and S1/S2; Negative Murmur, Rub or Gallop
GI: Soft, Nontender, Nondistended and Normal Bowel Sounds
Musculoskeletal: No Clubbing, No Cyanosis and No Edema
Skin: Warm and Dry; Negative Rash
Neuro: AO x 3 and Nonfocal/Grossly Intact; Negative Tremors
Psych: Calm
Data Reviewed
-
Labs: Labs Reviewed by me, Discussed with Patient and Discussed with Family
[2025-08-02] MEDS: HEPARIN 500 UNITS IV ×2 (12:45→13:45)
--- NOTE | 2025-08-02 13:33 | W.PN.NEPH.HD ---
Assessment
-
Seen on HD. no complaints. VSS, access CVC ok
Progress Note - Hemodialysis
-
Date of Service: August 02, 2025
Duration: 30 minutes and 3 hours
Potassium Bath: 2
Calcium Bath: 2.5
Opti-Dialyzer: 160
Ultrafiltration: Other (2kg)
Blood Flow: 400
Dialysate Flow: 600
Heparin: 500x2
EPO: 4000 units
[2025-08-02] MEDS: RETACRIT 4000 UNITS IV (13:53)
[2025-08-02 15:42] VITALS: BP 121/65
[2025-08-02] MEDS: HEPARIN 3200 UNITS INTRACATH (16:07)
[2025-08-02] MEDS: NORVASC PO (16:41)
[2025-08-02] MEDS: COREG PO (16:41)
[2025-08-02] MEDS: FLUZONE HIGH-DOSE 2025-26 0.5 ML IM (16:42)
[2025-08-02 17:45] VITALS: BP 143/67
--- NOTE | 2025-08-03 12:49 | W.DCSUMMARY ---
Discharge Summary
Discharge Data
Date of Admission: 07/30/25
Date of Discharge: 08/02/25
Total time spent discharging patient (in min): 31
-
Pending Results: No
Hospital Course
Discharging Physician : Pablito Llanes DO
Disposition : Homecare
Principal Discharge diagnosis :
Community-acquired pneumonia
Chronic Discharge diagnosis :
ESRD on HD MWF
Primary hypertension
History of polyarteritis nodosa
History of PFO
History of C. difficile colitis
Anemia of chronic disease
Hypothyroidism
Hospital Course :
84-year-old female that presented to the hospital with shortness of breath and productive cough with clear sputum. Chest x-ray with bilateral patchy parenchymal opacities. Was started on IV ceftriaxone and doxycycline empirically and clinically
improved. Urine Legionella and strep pneumonia antigens negative. Blood cultures taken on admission were ultimately negative. Viral panel negative. Received hemodialysis through her hospitalization. Was treated with oral vancomycin
prophylactically for previous C. difficile infections, recommended to continue for 5 days following completion of her antibiotics for CAP. At time of discharge was switched to cefdinir with doxycycline to complete 7-day course.
Important imaging findings : N/A
Procedure findings : N/A
Consultants:
Medical Radiation Tech: Verna Fragoso MD
Follow-up:
Follow-up with family doctor within 1 week of discharge
Discharge Plan
-
Patient Disposition: Home with Home Care
Discharge Diagnosis/Procedures: Community-acquired pneumonia
ESRD on HD M/W/F
Primary hypertension
Anemia of chronic kidney disease
History of patent foramen ovale
History of C. difficile colitis on oral vancomycin prophylaxis
History of polyarteritis nodosa
Condition: Fair
Diet: No restrictions
Activity: As tolerated
Driving Restrictions: Not until seen by your Dr
Bathing Restrictions: None
Blood Work: None
Others Tests: None
Referrals:
Mu Ortiz MD [Family Provider, Internal Medicine]
Additional Discharge Medication Instructions: Continue cefdinir 300 mg and doxycycline 100 mg twice daily for 4 more days
Use Mucinex twice daily for congestion for 4 more days
Continue oral vancomycin for 9 more days
Prescriptions:
New
guaifenesin 600 mg Tablet Extended Release 12hr
600 mg PO Q12 4 Days Qty: 8 0RF
doxycycline hyclate 100 mg Capsule
100 mg PO BID 4 Days Qty: 8 0RF
cefdinir 300 mg capsule
300 mg PO Q12H 4 Days Qty: 8 0RF
vancomycin 50 mg/mL Recon Soln
125 mg PO Q6 9 Days Qty: 90 0RF
Continued
latanoprost 0.005 % drops
1 drp BOTH EYES HS
carvedilol 25 mg tablet
25 mg PO BID
amlodipine 5 mg tablet
5 mg PO BID
Patient Comments:
AM Dose
levothyroxine [Synthroid] 100 mcg tablet
50 mcg PO HS
Patient Comments:
takes HS d/t dialysis in AM
pantoprazole 40 mg tablet,delayed release (DR/EC)
40 mg PO DAILY
ursodiol 300 mg capsule
300 mg PO TID
Patient Comments:
AM dose
folic acid 1 mg tablet
1 mg PO DAILY
levothyroxine [Synthroid] 200 mcg tablet
200 mcg PO DAILY
Triphrocaps 1 mg capsule
1 cap PO DAILY
losartan 100 mg tablet
100 mg PO DAILY
calcium acetate(phosphat bind) 667 mg Capsule
667 mg PO TID
melatonin 5 mg Tablet
10 mg PO HS
Tylenol Extra Strength 500 mg capsule
500 mg PO TID
Patient Comments:
AM dose
Rx Instructions:
breakfast, dinner, bedtime
Discharge Orders:
Discharge Patient (As Directed); Ordered 08/02/25
Ordered By: Pablito Llanes
Discharge Date and Time
Discharge Date/Time: 08/02/25 18:24
Print Language: CITIZ[place]
== END 2025-08-02 18:24 | disposition home health service (06) | DRG 193 ==
LOC: 4 WEST ACU 18:53
PROVIDERS: Nurse Practitioner Family; Registered Nurse; Specialist; ADMITTING PHYSICIAN Hospitalist; ATTENDING PHYSICIAN Internal Medicine; EMERGENCY PHYSICIAN Emergency Medicine; FAMILY PHYSICIAN Internal Medicine; OTHER PHYSICIAN Internal Medicine
PROC: 5A1D70Z Performance of Urinary Filtration, Intermittent, Less than 6 Hours Per Day (ICD-10-PCS; 2025-07-31)
PROC: 3E02340 Introduction of Influenza Vaccine into Muscle, Percutaneous Approach (ICD-10-PCS; 2025-08-02)
DX: J18.9 Pneumonia, unspecified organism (principal); N18.6 End stage renal disease; I13.2 Hypertensive heart and chronic kidney disease with heart failure and with stage 5 chronic kidney disease, or end stage renal disease; I50.9 Heart failure, unspecified; Z99.2 Dependence on renal dialysis; E03.9 Hypothyroidism, unspecified; D63.1 Anemia in chronic kidney disease; Z79.890 Hormone replacement therapy; Z11.52 Encounter for screening for COVID-19; E87.5 Hyperkalemia; Z91.81 History of falling; Z87.891 Personal history of nicotine dependence; Z88.0 Allergy status to penicillin; Z88.1 Allergy status to other antibiotic agents; Z79.899 Other long term (current) drug therapy; I49.1 Atrial premature depolarization; K21.9 Gastro-esophageal reflux disease without esophagitis; K74.60 Unspecified cirrhosis of liver; Z86.19 Personal history of other infectious and parasitic diseases; L89.621 Pressure ulcer of left heel, stage 1; L89.611 Pressure ulcer of right heel, stage 1; Z23 Encounter for immunization
CPT/HCPCS: 71046; 80048; 80053; 82962; 83880; 84484; 85025; 85027; 87040; 87070; 87502; 87811; 92610; 93005; 96374; 97116; 97163; 97166; 99285; G0257; P9047; Q5106

== ENCOUNTER 2025-08-26 10:35 | Inpatient (IN) | payer OTHER, SELFPAY ==
[2025-08-26] VITALS (40 sets, daily range): BP systolic 85–184; BP diastolic 52–88; BMI 20.7
[2025-08-26 06:06] LABS: Hematocrit 29.1 % (37.0-47.0); Hemoglobin 9.3 g/dL (12.0-16.0); Mean Corp Hgb Conc. 32.0 g/dL (33.0-37.0); Mean Corpuscular Volume 92.1 fL (81.0-99.0); Nucleated Red Blood Cells % 0 %; Platelet Count 254 10^3/uL (130-400); Red Cell Dist. Width 21.0 % (11.5-14.5)
--- NOTE | 2025-08-26 06:21 | ED.GENMED ---
History of Present Illness
General
Chief Complaint: Breathing Problem
Source: patient and family
Exam Limitations: none
Time Seen by Provider: 08/26/25 06:04
Nursing documentation reviewed up to this point in time: agreed with
History of Present Illness
History of Present Illness:
Patient with history of end-stage renal disease on hemodialysis (Tuesday, Tuesday, Tuesday), presents to ED after waking up this morning earlier than usual, acutely short of breath. Patient states that she did not have any symptoms over the
weekend, including last night when she went to sleep. Patient does report having had pork for dinner last night. Denies fever or chills. Denies coughing. Denies nausea, vomiting, or diarrhea. Denies leg pain or swelling. Denies chest pain.
Denies recent change in medications or diet. Patient was admitted to the hospital last month where she was treated for pneumonia. However at that time, patient's symptoms were different. In addition, patient reports having received full dialysis
session on Tuesday.
Review of Systems
Review of Systems
Allergies reviewed?: Yes
All Other Systems: ROS reviewed and negative except as documented in HPI and ROS
Constitutional: Reports no symptoms; Denies fever
Respiratory: Reports trouble breathing; Denies cough
Cardiac: Reports no symptoms
ABD/GI: Reports no symptoms; Denies vomiting or diarrhea
Musculoskeletal: Reports no symptoms; Denies edema
Skin: Reports no symptoms
Neurological: Reports no symptoms
Phy Exam
Physical Exam
Physical Exam:
Physical Exam
General: no apparent distress, not acutely ill. afebrile
Head: nc/at. eomi
Neck: supple. normal range of motion.
Heart: s1/s2 regular rate and rhythm
Lungs: mild respiratory distress. crackles bilaterally
Abdomen: normal bowel sounds. not tender.
Neuro: alert and oriented x 3. no focal neurological deficits
Skin: no rash
Psychiatric: well kept. interactive and cooperative
Extremities: no edema. no calf tenderness.
Scores
Heart Failure Risk
Heart Failure Risk Score: Not Applicable
Course
Orders/Labs/Results
Orders:
Orders
08/26/25 04:53
Electrocardiogram (*1) Urgent
Reason for Study: Other
Other Reason for Exam: Respiratory Distress
EKG- Treatment ONCE
08/26/25 05:04
Portable Chest Xray [CR Chest Portable - 1 View] Urgent
Comment:
Reason For Exam: dyspnea, hx of CHF, on dialyisis
Reason Study Needs to be Portable: Patient Unstable
08/26/25 05:52
Complete Blood Count/With Diff Urgent
Comprehensive Metabolic Panel Urgent
Magnesium Urgent
Comment: ADD ON
NT-proBNP Urgent
Troponin I Urgent
08/26/25 07:19
Add On- LAB Urgent
Tests Added?: magnesium
08/26/25 07:50
Calcium Gluconate 1,000 mg IV NOW STA
Dextrose 50%-Water [Dextrose 50% Syringe] 25 grams IV NOW STA
Insulin Human Regular [Novolin R] 10 units IV NOW STA
Sodium Bicarbonate 50 meq IV NOW STA
Sodium Zirconium Cyclosilicate [Lokelma] 10 gram PO NOW STA
08/26/25 09:19
Albumin Human 25% 50 ml [Flexbumin 25% For Hemodialysis] 12.5 grams IV HD-Q1HPRN PRN
Epoetin Clifford-Epbx [Retacrit] 8,000 units IV HD-ONCE ONE
Mannitol 25% 12.5 grams IV HD-Q1HPRN PRN
Hemodialysis treatment As Directed
Treatment date:: 08/26/25
Treatment type: Hemodialysis
Ultrafiltration (kg): 2.5
Treatment time (duration): 3 hours 45 minutes
Use dialysis access:: Tunneled Cath
Dialyzer:: Optiflux 160
Blood flow rate minimum: 350
Blood flow rate maximum: 400
Dialysis flow rate: 600 mL/min
Dialysate temperature: 37 degrees Celsius
Sodium (Na): 135
Potassium (K): 2
Calcium (Ca): 2.5
Bicarbonate (HCO3): 35
08/26/25 10:04
Admit/Transfer Patient As Directed
Co-Sign Provider:
Level of Care: Inpatient admission
Assign to:: IMU- Intermediate Care
Physician / Group: slade zavala
Diagnosis: hyperkalemia
Reason for Hospitalization: hyperkalemia
Expected length of stay greater than two midnights?: Yes
ELOS- Estimated Length of Stay in days: 2
I certify the patient meets the requirements for IP care: Yes
PRN Pain Medication Management As Directed
May give lesser potent ordered pain med per pt: Yes
preference::
Protocol:: Medication orders for pain may be administered in a
manner that supports deferring to patient preference
when the pt is:
- Requesting an ordered lesser potent pain medication.
Least to most potent pain medications are defined
as: acetaminophen < NSAID < tramadol < opioids
(morphine, oxycodone, hydromorphone).
- Requesting a lesser dose of the same medication IF
ORDERED.
- Requesting a less intrusive route of administration
if both routes are prescribed by the provider (PO <
IV).
08/26/25 10:07
Code Status As Directed
Resuscitation Status: Full Code
08/26/25 11:30
Bisacodyl [Dulcolax] 10 mg RECTAL [id number] PRN
Docusate W/Senna [Senokot-S] 1 tablet PO BIDPRN PRN
Polyethylene Glycol Powder [Miralax] 17 grams PO DAILYPRN PRN
08/26/25 11:30
Activity As Directed
Activity Level: As Tolerated
Vital Signs As Directed
Frequency: Per unit guidelines
DX Deep Vein Thrombosis Video Routine
08/26/25 12:00
Calcium Acetate [Phoslo] 667 mg PO MEALS
08/26/25 12:15
Potassium Urgent
Comment: draw 4 hours after Lokelma administered
08/26/25 16:00
Acetaminophen [Tylenol] 1,000 mg PO TIDPRN PRN
Ursodiol [Actigall] 300 mg PO TID
08/26/25 20:00
Amlodipine [Norvasc] 5 mg PO BID
Carvedilol [Coreg] 25 mg PO BID
Heparin 5,000 units SC Q12
08/26/25 22:00
Latanoprost [Xalatan Ophthalmic Solution] See Dose Instructions BOTH EYES HS
Melatonin 10 mg PO HS
Timolol Maleate 0.5% [Timoptic 0.5% Ophthalmic Solution] See Dose Instructions BOTH EYES HS
08/27/25 06:00
Basic Metabolic Panel IN AM
Complete Blood Count/No Diff IN AM
08/27/25 08:00
FOLic ACID [Folvite] 1 mg PO DAILY
Losartan [Cozaar] 100 mg PO DAILY
Pantoprazole [Protonix] 40 mg PO DAILY
Renal Cap [Nephrocap] 1 capsule PO DAILY
08/28/25 06:00
Basic Metabolic Panel IN AM
Complete Blood Count/No Diff IN AM
08/29/25 06:00
Basic Metabolic Panel IN AM
Complete Blood Count/No Diff IN AM
08/30/25 06:00
Basic Metabolic Panel IN AM
Complete Blood Count/No Diff IN AM
08/31/25 06:00
Basic Metabolic Panel IN AM
Complete Blood Count/No Diff IN AM
09/01/25 06:00
Basic Metabolic Panel IN AM
Complete Blood Count/No Diff IN AM
09/02/25 06:00
Basic Metabolic Panel IN AM
09/03/25 06:00
Basic Metabolic Panel IN AM
09/04/25 06:00
Basic Metabolic Panel IN AM
Abnormal Lab Results
08/26/25
05:52
WBC 12.4 H 10^3/uL
(4.8-10.8)
RBC 3.16 L 10^6/uL
(4.20-5.40)
Hgb 9.3 L g/dL
(12.0-16.0)
Hct 29.1 L %
(37.0-47.0)
MCHC 32.0 L g/dL
(33.0-37.0)
RDW 21.0 H %
(11.5-14.5)
Abs Immat Gran (auto) 0.1 H 10^3/uL
(0-0.05)
Absolute Neuts (auto) 10.0 H 10^3/uL
(1.4-6.5)
Absolute Lymphs (auto) 1.0 L 10^3/uL
(1.2-3.4)
Absolute Monos (auto) 1.0 H 10^3/uL
(0.1-0.6)
Neutrophils % 80.6 H %
(42.2-75.2)
Lymphocytes % 7.8 L %
(20.5-51.1)
Sodium 132 L mmol/L
(135-145)
Potassium 7.0 H* mmol/L
(3.5-5.1)
Chloride 93 L mmol/L
(98-107)
BUN 81 H mg/dl
(7-17)
Creatinine 8.4 H* mg/dL
(0.6-1.0)
Magnesium 2.4 H mg/dl
(1.6-2.3)
08/26/25 05:52
08/26/25 05:52
Vital Signs
Initial and Last Documented VS:
Initial Vital Signs
Pulse Ox
96
08/26/25 04:45
Last Documented Vital Signs
Temp Pulse Resp BP Pulse Ox
98.1 F 73 25 135/88 99
08/26/25 12:06 08/26/25 12:00 08/26/25 12:00 08/26/25 12:00 08/26/25 12:00
MDM/Problems Addressed
MDM/Problems Addressed:
History and exam consistent with mild fluid overload. Unfortunately, patient noted to be hyperkalemic with blood work. In light of hyperkalemia along with mild hypoxia, patient will be admitted for further evaluation treatment, including scheduled
dialysis today.
On-call nephrology, , notified via [facility]. Requests medical tx for hyperkalemia. As such, sodium bicarb, calcium, insulin, and D50 ordered.
Pt remains hemodynamically stable with minimal supplemental oxygen administration
*Pulse Oximetry
SaO2: 96
Nasal Cannula flow liters per minute: 2
Oxygen Mode of Delivery: Room air
Patient hypoxic: yes
*EKG
Interpreted by ED Provider?: Yes
EKG Intrepretation Date: 08/26/25
Heart Rate: 75
Rate: normal
Rhythm: sinus
Clemons: left axis deviation
*Critical Care Note
Total Time (30-74mins, 75-104mins- exclusive of procedures): Not Applicable
ED Attending Note
-
Portions of this chart may have been created with voice recognition software.� Occasional wrong word or��sound alike� substitutions may have occurred due to the inherent limitations of voice recognition software.
Discharge Plan
Departure
Patient Disposition: Admit
Date of Disposition: 08/26/25
Time of Disposition: 07:17
Admit to: Telemetry
Presentation/result/management discussed w/ accepting MD/DO: Hospitalist
Discharge Problem:
Fluid overload, Hyperkalemia, Hypoxia
Interventions
Interventions:
*Risk Screen - Suicide Last Done: 08/26/25 05:19
*General Assessment Last Done: 08/26/25 05:19
*Neglect/Abuse Screening Last Done: 08/26/25 05:19
*ED- Fall Risk Assessment Last Done: 08/26/25 05:19
*ED COVID-19 Vaccine History Last Done: 08/26/25 05:19
*ED Influenza Vaccine History Last Done: 08/26/25 05:19
*Nursing Disposition Last Done: 08/26/25 11:15
ED- Cardiac Assessment Last Done: 08/26/25 05:24
ED- Pulmonary Assessment Last Done: 08/26/25 05:24
Discharge Date and Time
Discharge Date/Time: 08/26/25 11:15
[2025-08-26 06:34] LABS: ALT (SGPT) 16 U/L (0-35); AST (SGOT) 24 U/L (14-36); Albumin 4.2 g/dl (3.5-5.0); Alkaline Phosphatase 77 U/L (38-126); Blood Urea Nitrogen 81 mg/dl (7-17); Calcium 10.2 mg/dl (8.4-10.2); Carbon Dioxide 27 mmol/L (22-30); Chloride 93 mmol/L (98-107); Glucose 94 mg/dl (70-99); Potassium 7.0 mmol/L (3.5-5.1); Sodium 132 mmol/L (135-145); Total Protein 8.1 g/dl (6.3-8.2); eGFR 4.27
[2025-08-26 06:41] LABS: Troponin I < 0.012 ng/ml
[2025-08-26 08:04] LABS: Magnesium 2.4 mg/dl (1.6-2.3)
[2025-08-26] MEDS: CALCIUM GLUCONATE 1000 MG IV (08:35)
[2025-08-26] MEDS: SODIUM BICARBONATE 50 MEQ IV (08:35)
--- NOTE | 2025-08-26 08:35 | EDRN ---
Pt said she needs to have a BM and placed on bedpan though was not able to void.
[2025-08-26] MEDS: DEXTROSE 50% SYRINGE 25 GRAMS IV (08:36)
[2025-08-26] MEDS: NOVOLIN R 10 UNITS IV (08:36)
[2025-08-26 08:40] LABS: Glucose - Point of Care 91 mg/dl (70-99)
[2025-08-26] MEDS: LOKELMA 10 GRAM PO (08:50)
--- NOTE | 2025-08-26 09:30 | EDRN ---
Dr. Smith in room w/ pt (commis chef)
--- NOTE | 2025-08-26 10:05 | EDRN ---
Jig Maker asked about room status for this pt and said that no rooms available. This RN also spoke w/ cupola charger Rosalva and when orders are written pt to go to [facility] as a hold pt.
--- NOTE | 2025-08-26 10:31 | EDRN ---
Dr. Marco Gr in room w/ pt (hospitalist) Pt is feeling hot at this time.
--- NOTE | 2025-08-26 11:00 | EDRN ---
Organizing pt to transfer to [facility] #[id number] and gave report to Aramis VALVERDE but pt got an IMU bed so on phone now to call report.
--- NOTE | 2025-08-26 11:10 | EDRN ---
Report called to RUSTY Talley RN at this time.
--- NOTE | 2025-08-26 12:03 | W.CON.NEPH ---
Consultation
-
Date/Time Consultation Requested: August 26, 2025 at 9 AM
Date/Time Consultation Performed: August 26, 2025 at 10 AM
Requesting Provider: Kaushik Pedroza
Performing Provider: Dr. Card
Reason for Consultation: ESRD and hyperkalemia
Medical History
-
Chief Complaint: ESRD and hyperkalemia
History of Present Illness:
84-year-old female with past medical history of hypertension, PFO, end-stage renal disease on HD 8.5 yrs MWF [facility] through tunneled catheter, C diff presented to ER shortness of breath.
Recent admission for pneumonia 2 weeks ago.
Renal consult for end-stage renal disease dialysis management and hyperkalemia with potassium of 7 last dialysis was Tuesday via right permacath
Patient was seen in the ER her son was at the bedside help provide history
Past Medical History
Glaucoma, bilateral cirrhosis, end-stage renal disease, vertigo, GERD, hypothyroidism, SVT, glomerulonephritis, hypertension, polyarteritis nodosa, Arana's esophagus, cardiomyopathy, PFO
Failed AVFs
Past Surgical History: Other (Appendectomy, cataract surgery, tonsillectomy, AV fistula placement)
Social History
Tobacco: Former Smoker
Alcohol: None
Drug: None
Living: With Family
Family History
Family History: Not Pertinent
Allergies / Home Medications
Allergy/AdvReac Type Severity Reaction Status Date / Time
amoxicillin (From Augmentin) Allergy PER SON Verified 07/30/25 21:59
clavulanic acid (From Allergy PER SON Verified 07/30/25 21:59
Augmentin)
erythromycin base Allergy PER SON Verified 07/30/25 21:59
�Medication �Instructions �Recorded �Confirmed �Type
amlodipine 5 mg tablet 5 mg PO BID Blood Pressure 07/30/25 08/26/25 History
calcium acetate(phosphat bind) 667 667 mg PO AC Supplement 07/30/25 08/26/25 History
mg capsule
carvedilol 25 mg tablet 25 mg PO BID Blood Pressure 07/30/25 08/26/25 History
folic acid 1 mg tablet 1 mg PO DAILY Supplement 07/30/25 08/26/25 History
latanoprost 0.005 % eye drops 1 drp BOTH EYES HS Eye Condition 07/30/25 08/26/25 History
levothyroxine 200 mcg tablet 275 mcg PO DAILY Thyroid 07/30/25 08/26/25 History
(Synthroid)
losartan 100 mg tablet 100 mg PO DAILY Blood Pressure 07/30/25 08/26/25 History
melatonin 5 mg tablet 10 mg PO HS Sleep 07/30/25 08/26/25 History
pantoprazole 40 mg tablet,delayed 40 mg PO DAILY Gastrointestinal 07/30/25 08/26/25 History
release Issue
ursodiol 300 mg capsule 300 mg PO TID Urinary Issue 07/30/25 08/26/25 History
vitamin B complex and vitamin C 1 cap PO DAILY Supplement 07/30/25 08/26/25 History
no.20-folic acid 1 mg capsule
(Triphrocaps)
acetaminophen 500 mg tablet 500 mg PO TIDPRN PRN neck or back 08/26/25 08/26/25 History
(Tylenol Extra Strength) pain
denosumab 60 mg/mL subcutaneous 60 mg SC [id number] 08/26/25 08/26/25 History
syringe (Prolia)
timolol 0.5 % eye drops 1 drp ophthalmic (eye) HS 08/26/25 08/26/25 History
Review of Systems
-
Shortness of breath/orthopnea
All other systems: Negative unless noted
Physical Exam
Vital Signs
Vital Signs
Temp Pulse Resp BP Pulse Ox
97.7 F 81 29 144/53 98
08/26/25 10:31 08/26/25 11:30 08/26/25 11:30 08/26/25 11:25 08/26/25 11:30
Lab Results
WBC 12.4 10^3/uL (4.8-10.8) H 08/26/25 05:52
RBC 3.16 10^6/uL (4.20-5.40) L 08/26/25 05:52
Hgb 9.3 g/dL (12.0-16.0) L 08/26/25 05:52
Hct 29.1 % (37.0-47.0) L 08/26/25 05:52
Plt Count 254 10^3/uL (130-400) 08/26/25 05:52
Sodium 132 mmol/L (135-145) L 08/26/25 05:52
Chloride 93 mmol/L (98-107) L 08/26/25 05:52
Carbon Dioxide 27 mmol/L (22-30) 08/26/25 05:52
BUN 81 mg/dl (7-17) H 08/26/25 05:52
Creatinine 8.4 mg/dL (0.6-1.0) H* 08/26/25 05:52
eGFR 4.27 08/26/25 05:52
Glucose 94 mg/dl (70-99) 08/26/25 05:52
Calcium 10.2 mg/dl (8.4-10.2) 08/26/25 05:52
Cfm-M-Evehrxisbng Pept 07346 pg/ml 08/26/25 05:52
Albumin 4.2 g/dl (3.5-5.0) 08/26/25 05:52
Physical Exam
General: Awake, Alert, Oriented, AOx3, No Distress and Nontoxic
HEENT: EOMI, Anicteric, Conjunctivae Clear and Other (facial bruising noted-healing)
Respiratory: Clear (anteriorly), Normal Excursion and Nonlabored Respirations
Cardiac: S1/S2 and Regular Rate/Rhythm
Breast: Deferred by me
Abdomen: Soft, Nontender and Nondistended
Musculoskeletal: No Cyanosis and No Edema
Skin: No Rash
Neuro: Nonfocal/Grossly Intact
Psych: Mood/afflect pleasant, Insight/judgement good and Appropriate
Vascular Access: CVC
Data Reviewed
-
Radiology: Image Personally Visualized and interpreted
Labs: Labs Reviewed by me, Discussed with Physician, Discussed with Nurse, Discussed with Patient and Discussed with Family
Assessment/Plan
-
\\84-year-old female with past medical history of hypertension, PFO, end-stage renal disease on HD 8.5 yrs MWF [facility] through tunneled catheter, C diff presented to ER shortness of breath.
Recent admission for pneumonia 2 weeks ago.
Renal consult for end-stage renal disease dialysis management and hyperkalemia with potassium of 7 last dialysis was Tuesday via right permacath
Patient was seen in the ER her son was at the bedside help provide history
IMP:
Hyperkalemia 7
Pulmonary edema and shortness of breath
History of C diff
Anemia likely chronic
End-stage renal disease MWF, CVC
Hyperkalemia
Essential hypertension
Hypothyroidism
Plan:
Dialysis order for today with 2 potassium bath
Ultrafiltration 3 L as tolerated
Temporizing measures for hyperkalemia discussed with the ER
--- NOTE | 2025-08-26 12:06 | PTCARENOTE ---
pt wakes to name. states no pain. hd now in room. sons at bedside reviewed plan of care.
[2025-08-26 13:06] LABS: Potassium 6.0 mmol/L (3.5-5.1)
[2025-08-26] MEDS: PHOSLO PO (13:22)
[2025-08-26] MEDS: RETACRIT 8000 UNITS IV (13:54)
[2025-08-26] MEDS: MANNITOL 25% 12.5 GRAMS IV ×2 (13:55→15:27)
--- NOTE | 2025-08-26 14:23 | CM ---
I.A: Completed By FAREED Santiago. Reviewed chart.
Patient with her her son, Kojo, in [place], where this is a 1 level with a ramp (garage area), has a rollator at home and a transport chair. There was recent admission to us around 07/31/2025, but prior to [facility] then went to .
[facility], then d/c to son's home. Past notes state that the patient resided in a ranch style home, two steps to enter in [employer].
Patient is currently with [facility], will send referral in [facility]. Patient current with [facility] location (M,W,F 11:00 a.m. chair time).
PCP Mu Ortiz
Pharmacy [facility].
PLAN: TBD, SNF vs. Home with [facility]
[2025-08-26] MEDS: FLEXBUMIN 25% FOR HEMODIALYSIS 12.5 GRAMS IV (14:53)
--- NOTE | 2025-08-26 15:22 | HPS.HSE ---
Family Physician
-
Family Physician: Mu Robledo
Chief Complaint
-
SOB
History of Present Illness
84 female history of hypertension, PFO, ESRD on hemodialysis Tuesday, C. difficile presented with shortness of breath that began at 3 AM. Recent admission for pneumonia 2 weeks prior. Son at bedside who provided full history.
States has not missed a single hemodialysis session. Last hemodialysis session was Tuesday and was a full session. Primary catheter has been working well and has not been covered since Tuesday.
While in the ED: Found to have a SpO2 of 93% with a respiratory rate of 29%. Started on 2 L nasal cannula with improvement in saturations and respiratory rate. Terms of the lab work found to have a white count of 12.4 hemoglobin 9.3 platelets 254.
BMP sodium 132 potassium 7.0 creatinine 8.4. EKG accelerated junctional rhythm with left axis deviation. Nephrology notified recommend hemodialysis and temporizing measures and Lokelma. Received temporizing measures with insulin dextrose
calcium gluconate sodium bicarb and Lokelma.
Medical History
Past Medical History
Past Medical History: Reports Hypercholesterolemia, Hypothyroidism, Renal Failure and Other (PFO)
Past Surgical History: Reports Other (Appendectomy, cataract surgery, tonsillectomy, AV fistula placement)
Social History
Drug: None
Family History
Family History: Not pertinent
Allergies / Home Medications
Allergies reflects when Allergies were last updated in [employer].
Home Medications with original date entered in [employer]
Allergy/Medication List:
Allergies
Allergy/AdvReac Type Severity Reaction Status Date / Time
amoxicillin (From Augmentin) Allergy PER SON Verified 07/30/25 21:59
clavulanic acid (From Allergy PER SON Verified 07/30/25 21:59
Augmentin)
erythromycin base Allergy PER SON Verified 07/30/25 21:59
Home Medications
amlodipine 5 mg tablet 5 mg PO BID Blood Pressure 07/30/25
calcium acetate(phosphat bind) 667 mg capsule 667 mg PO AC Supplement 07/30/25
carvedilol 25 mg tablet 25 mg PO BID Blood Pressure 07/30/25
folic acid 1 mg tablet 1 mg PO DAILY Supplement 07/30/25
latanoprost 0.005 % eye drops 1 drp BOTH EYES HS Eye Condition 07/30/25
levothyroxine 200 mcg tablet (Synthroid) 275 mcg PO DAILY Thyroid 07/30/25
losartan 100 mg tablet 100 mg PO DAILY Blood Pressure 07/30/25
melatonin 5 mg tablet 10 mg PO HS Sleep 07/30/25
pantoprazole 40 mg tablet,delayed release 40 mg PO DAILY Gastrointestinal Issue 07/30/25
ursodiol 300 mg capsule 300 mg PO TID Urinary Issue 07/30/25
vitamin B complex and vitamin C no.20-folic acid 1 mg capsule (Triphrocaps) 1 cap PO DAILY Supplement 07/30/25
acetaminophen 500 mg tablet (Tylenol Extra Strength) 500 mg PO TIDPRN PRN neck or back pain 08/26/25
denosumab 60 mg/mL subcutaneous syringe (Prolia) 60 mg SC [id number] 08/26/25
timolol 0.5 % eye drops 1 drp ophthalmic (eye) HS 08/26/25
Review of Systems
-
A 12 point ROS was completed and negative except as noted: Yes
Physical Exam
Vital Signs
Vital Signs
Temp Pulse Resp BP Pulse Ox
98.1 F 73 25 124/61 99
08/26/25 12:06 08/26/25 12:00 08/26/25 12:00 08/26/25 13:22 08/26/25 12:00
Physical Exam
HEENT: Anicteric
Laboratory Results
-
08/26/25 05:52
08/26/25 12:15
Laboratory Results
Total Bilirubin 0.6 mg/dl (0.2-1.3) 08/26/25 05:52
AST 24 U/L (14-36) 08/26/25 05:52
ALT 16 U/L (0-35) 08/26/25 05:52
Alkaline Phosphatase 77 U/L (38-126) 08/26/25 05:52
Troponin I < 0.012 ng/ml 08/26/25 05:52
Impression/Plan
-
NAD
Scleral Anicteric
Right anterior chest wall
No JVD
Bibasilar crackles
IRR, S1/S2
Soft, NT, ND, BS+
Warm, Dry
AAOx3
Calm
Severe life threatening hyperkalemia
Temporized with cardiac membrane stabilization
Lokelma
Nephrology consult for hemodialysis urgent
Hold losartan/K sparing agents
ESRD on HD via right anterior chest wall permacatheter
Tuesday, compliant, anuric
Continue binders
Nephrology consulted for hemodialysis
History of C. difficile
No acute infection at this time
No indication for prophylactic treatment
Hypertension
Continue antihypertensive
Hypothyroidism
Continue levothyroxine
DVT prophylaxis
Med rec completed by pharmacy in the ED
Heparin
Son tells me she has a DNR however at this time she wants to be full code
--- NOTE | 2025-08-26 15:47 | W.PN.NEPH.HD ---
Assessment
-
Tolerating dialysis so far blood pressure did drop a bit will give midodrine. Will give dialysis again tomorrow as well for ultrafiltration
Progress Note - Hemodialysis
-
Date of Service: August 26, 2025
Duration: 30 minutes and 3 hours
Calcium Bath: 2.5
Opti-Dialyzer: 160
Ultrafiltration: EDW
Blood Flow: 350
Dialysate Flow: 600
EPO: yes
[2025-08-26] MEDS: PHOSLO 667 MG PO (17:06)
[2025-08-26] MEDS: ACTIGALL 300 MG PO ×2 (17:06→21:10)
[2025-08-26] MEDS: COREG 25 MG PO (19:19)
[2025-08-26] MEDS: HEPARIN 5000 UNITS SC (19:19)
[2025-08-26] MEDS: NORVASC 5 MG PO (19:19)
[2025-08-26] MEDS: XALATAN OPHTHALMIC SOLUTION 1 DROP BOTH EYES (21:10)
[2025-08-26] MEDS: MELATONIN 10 MG PO (21:10)
[2025-08-26] MEDS: TIMOPTIC 0.5% OPHTHALMIC SOLUTION 1 DROP BOTH EYES (21:10)
[2025-08-27] VITALS (28 sets, daily range): BP systolic 100–162; BP diastolic 55–80
[2025-08-27] MEDS: SYNTHROID 275 MCG PO (05:23)
[2025-08-27 05:50] LABS: Hematocrit 29.3 % (37.0-47.0); Hemoglobin 9.1 g/dL (12.0-16.0); Mean Corp Hgb Conc. 31.1 g/dL (33.0-37.0); Mean Corpuscular Volume 96.4 fL (81.0-99.0); Platelet Count 213 10^3/uL (130-400); Red Cell Dist. Width 21.4 % (11.5-14.5)
[2025-08-27 06:12] LABS: Blood Urea Nitrogen 26 mg/dl (7-17); Calcium 8.6 mg/dl (8.4-10.2); Carbon Dioxide 30 mmol/L (22-30); Chloride 92 mmol/L (98-107); Estimated Creatinine Clearance 8 ml/min; Glucose 85 mg/dl (70-99); Potassium 4.7 mmol/L (3.5-5.1); Sodium 132 mmol/L (135-145); eGFR 11.05
--- NOTE | 2025-08-27 06:23 | PTCARENOTE ---
Pt AAOx2
--- NOTE | 2025-08-27 06:24 | PTCARENOTE ---
Pt AAOx3, VSS throughout the night. Denies new complaints. Ambulated to bathroom with assistx1. Call manuel within reach. Care ongoing.
--- NOTE | 2025-08-27 08:59 | PTCARENOTE ---
Patient received from mold shifter. Patient resting comfortably in bed. AAO but a little forgetful, VSS. No events noted overnight. No complaints of pain at this time. Currently on 2L N/C due to some desaturations overnight, will wean back to
room air. HD today. No testing scheduled at this time. Possible discharge today after HD. Call manuel in reach.
[2025-08-27] MEDS: HEPARIN 5000 UNITS SC (09:05)
[2025-08-27] MEDS: FOLVITE 1 MG PO (09:06)
[2025-08-27] MEDS: COREG 25 MG PO (09:06)
[2025-08-27] MEDS: NORVASC 5 MG PO (09:06)
[2025-08-27] MEDS: PROTONIX 40 MG PO (09:06)
[2025-08-27] MEDS: PHOSLO 667 MG PO ×2 (09:06→17:03)
[2025-08-27] MEDS: NEPHROCAP 1 CAPSULE PO (09:06)
[2025-08-27] MEDS: ACTIGALL 300 MG PO ×2 (09:06→17:03)
[2025-08-27] MEDS: PHOSLO PO (12:00)
[2025-08-27] MEDS: MANNITOL 25% 12.5 GRAMS IV ×2 (12:10→13:03)
[2025-08-27] MEDS: FLEXBUMIN 25% FOR HEMODIALYSIS 12.5 GRAMS IV ×2 (12:20→13:02)
--- NOTE | 2025-08-27 14:41 | W.PN.NEPH.PH ---
Today's Communication / Plan
-
Discontinue losartan.
Start Lokelma twice a week for persistent hyperkalemia
Assessment/Plan
-
\\84-year-old female with past medical history of hypertension, PFO, end-stage renal disease on HD 8.5 yrs MWF [facility] through tunneled catheter, C diff presented to ER shortness of breath.
Recent admission for pneumonia 2 weeks ago.
Renal consult for end-stage renal disease dialysis management and hyperkalemia with potassium of 7 last dialysis was Tuesday via right permacath
Patient was seen in the ER her son was at the bedside help provide history
IMP:
Hyperkalemia 7
Pulmonary edema and shortness of breath
History of C diff
Anemia likely chronic
End-stage renal disease MWF, CVC
Hyperkalemia
Essential hypertension
Hypothyroidism
Plan:
Dialysis order for today with 2 potassium bath
Estimated dry weight per discussion with her son and outpatient records is 76 kg
Ultrafiltration 3 L as tolerated
Patient dialysis yesterday only liter UF with drop in blood pressure
Discontinue losartan with drops in blood pressure on dialysis will consider midodrine but this will have to be done as an outpatient.
With persistent hyperkalemia on 2 or 3 admissions suggested starting Lokelma twice a week which we will prescribe on discharge.
From renal standpoint be okay for discharge discussed this with hospital medicine as well as his son at
-
-
Date of Service: August 27, 2025
CC / HPI / ROS
-
Chief Complaint:
Shortness of breath
History of Present Illness:
ESRD presents for shortness of breath and hyperkalemia and CHF
Review of Systems:.
No chest pain or shortness of breath
Labs
-
Labs:
WBC 9.6 10^3/uL (4.8-10.8) 08/27/25 05:30
RBC 3.04 10^6/uL (4.20-5.40) L 08/27/25 05:30
Hgb 9.1 g/dL (12.0-16.0) L 08/27/25 05:30
Hct 29.3 % (37.0-47.0) L 08/27/25 05:30
Plt Count 213 10^3/uL (130-400) 08/27/25 05:30
Sodium 132 mmol/L (135-145) L 08/27/25 05:30
Potassium 4.7 mmol/L (3.5-5.1) 08/27/25 05:30
Chloride 92 mmol/L (98-107) L 08/27/25 05:30
Carbon Dioxide 30 mmol/L (22-30) 08/27/25 05:30
BUN 26 mg/dl (7-17) H 08/27/25 05:30
Creatinine 3.8 mg/dL (0.6-1.0) H 08/27/25 05:30
eGFR 11.05 08/27/25 05:30
Glucose 85 mg/dl (70-99) 08/27/25 05:30
Calcium 8.6 mg/dl (8.4-10.2) D 08/27/25 05:30
Ddr-Y-Xgcxifkplxk Pept 63708 pg/ml 08/26/25 05:52
Albumin 4.2 g/dl (3.5-5.0) 08/26/25 05:52
Physical Exam
-
Vital Signs:
Vital Signs
Temp Pulse Resp BP Pulse Ox
98 F 73 17 132/69 99
08/27/25 11:42 08/27/25 10:53 08/27/25 06:00 08/27/25 10:53 08/27/25 12:58
Cardiovascular:: Regular rate and rhythm
Respiratory:: Bilateral: Coarse
Lung Excursion:: Normal
Abdomen:: Nontender and Soft
Extremity Edema:: None: Bilateral:
Desai Catheter: No
--- NOTE | 2025-08-27 16:16 | W.DCSUMMARY ---
Discharge Summary
Discharge Data
Date of Admission: 08/26/25
Date of Discharge: 08/27/25
-
Pending Results: No
Hospital Course
84 female history of hypertension, PFO, ESRD on hemodialysis Tuesday, C. difficile
Presented with shortness of breath requiring supplemental oxygen and was found to have pulmonary edema along with elevated potassium in the sevens. Potassium was temporized and provided with Lokelma. Nephrology consulted recommended urgent
hemodialysis. Was able to wean oxygen postdialysis to room air. However still with noticeable crackles on exam therefore nephrology decided to do an extra session that was short today and regular session for tomorrow. Nephrology cleared for
discharge with recommendations to discontinue losartan and use not due to hyperkalemia issues however for hypotension to allow for longer and improved dialysis sessions to get more volume off as there was a 3 kg weight gain. Initial weight 49 kg
outpatient dry weight 46 kg. Will start Lokelma on Saturdays and Tuesdays 10 mg once on each day. Outpatient nephrology follow-up outpatient PCP follow-up
CXR
IMPRESSION:
Mild interstitial opacification suggestive of mild interstitial edema.
Seen and examined on the day of discharge. No new complaints. No acute overnight events.
Off oxygen breathing on room air. Comfortable
NAD
Scleral Anicteric
MMM
No JVD
Mild/slight bibasilar crackles
RRR, S1/S2
Soft, NT, ND, BS+
Warm, Dry
AAOx3
Calm
More than 30 minutes spent in discharge including
Final examination of the patient
Summarizing hospital stay
Instructions for continuing care to all relevant caregivers
Preparation of discharge records, prescriptions, and referral forms
Total time spent (in minutes): 33mins
Discharge Plan
-
Patient Disposition: Home with Home Care
Discharge Diagnosis/Procedures: Acute hypoxic respiratory failure
Hyperkalemia
ESRD
Condition: Good
Diet: As tolerated, Low Cholesterol, Low Sodium, 2 Gram Sodium, No added salt and Restrict fluids to 48 oz
Activity: As tolerated
Activity Restrictions/Additional Instructions:
Presented with shortness of breath requiring supplemental oxygen and was found to have pulmonary edema along with elevated potassium in the sevens. Potassium was temporized and provided with Lokelma. Nephrology consulted recommended urgent
hemodialysis. Was able to wean oxygen postdialysis to room air. However still with noticeable crackles on exam therefore nephrology decided to do an extra session that was short today and regular session for tomorrow. Nephrology cleared for
discharge with recommendations to discontinue losartan and use not due to hyperkalemia issues however for hypotension to allow for longer and improved dialysis sessions to get more volume off as there was a 3 kg weight gain. Initial weight 49 kg
outpatient dry weight 46 kg. Will start Lokelma on Saturdays and Tuesdays 10 mg once on each day. Outpatient nephrology follow-up outpatient PCP follow-up
CXR
IMPRESSION:
Mild interstitial opacification suggestive of mild interstitial edema.
Referrals:
Mu Ortiz MD [Family Provider, Internal Medicine]
Prescriptions:
New
Lokelma 10 gram powder in packet
10 g PO .tue Qty: 30 0RF
Continued
latanoprost 0.005 % drops
1 drp BOTH EYES HS
carvedilol 25 mg tablet
25 mg PO BID
amlodipine 5 mg tablet
5 mg PO BID
Patient Comments:
AM Dose
pantoprazole 40 mg tablet,delayed release (DR/EC)
40 mg PO DAILY
ursodiol 300 mg capsule
300 mg PO TID
Patient Comments:
AM dose
folic acid 1 mg tablet
1 mg PO DAILY
levothyroxine [Synthroid] 200 mcg tablet
275 mcg PO DAILY
Triphrocaps 1 mg capsule
1 cap PO DAILY
calcium acetate(phosphat bind) 667 mg Capsule
667 mg PO AC
melatonin 5 mg Tablet
10 mg PO HS
timolol 0.5 % Drops
1 drp OPHTHALMIC (EYE) HS
Prolia 60 mg/mL Syringe
60 mg SC [id number]
acetaminophen [Tylenol Extra Strength] 500 mg Tablet
500 mg PO TIDPRN PRN (Reason: neck or back pain)
Discontinued
losartan 100 mg tablet
100 mg PO DAILY
Discharge Orders:
Discharge Patient (As Directed); Ordered 08/27/25
Ordered By: Marco Gr
Discharge Date and Time
Print Language: BANGLADESHI
--- NOTE | 2025-08-27 16:32 | CM ---
CM reviewed chart, patient for d.c today.
CM spoke with patients sonHarrison, confirmed patient has transport home.
Patient will continue services with Niki ERICKSON.
Patient current with [facility] location (M,W,F 11:00 a.m. chair time)
Plan; home with Kojo marroquin, ELVA Niki ERICKSON
Niki ERICKSON
--- NOTE | 2025-08-27 17:55 | PTCARENOTE ---
Patient discharged to home. Discharge instructions reviewed with patient and sons, all questions answered. Patient left with all known belongings. Was escorted to main lobby via wheel chair.
== END 2025-08-27 18:08 | disposition home health service (06) | DRG 189 ==
LOC: IMU 10:35
PROVIDERS: Student in an Organized Health Care Education/Training Program; ADMITTING PHYSICIAN Hospitalist; EMERGENCY PHYSICIAN Emergency Medicine; FAMILY PHYSICIAN Internal Medicine; OTHER PHYSICIAN Internal Medicine Nephrology
PROC: 5A1D70Z Performance of Urinary Filtration, Intermittent, Less than 6 Hours Per Day (ICD-10-PCS; 2025-08-26)
DX: J96.01 Acute respiratory failure with hypoxia (principal); N18.6 End stage renal disease; Q21.12 Patent foramen ovale; I13.2 Hypertensive heart and chronic kidney disease with heart failure and with stage 5 chronic kidney disease, or end stage renal disease; E87.5 Hyperkalemia; E03.9 Hypothyroidism, unspecified; E78.00 Pure hypercholesterolemia, unspecified; Z87.01 Personal history of pneumonia (recurrent); I50.9 Heart failure, unspecified; Z79.899 Other long term (current) drug therapy; Z79.890 Hormone replacement therapy; Z87.891 Personal history of nicotine dependence; Z88.0 Allergy status to penicillin; Z99.2 Dependence on renal dialysis; D63.1 Anemia in chronic kidney disease; K21.9 Gastro-esophageal reflux disease without esophagitis
CPT/HCPCS: 71045; 80048; 80053; 82962; 83735; 83880; 84132; 84484; 85025; 85027; 93005; 96374; 96375; 99285; G0257; P9047; Q5106